=== PATIENT | male | born 1995 | race Caucasian/White ===

== ENCOUNTER 2016-11-04 23:37 | Emergency (ER) | payer OTHER ==
[~2016-11-04] VITALS: Ht 172.7 cm; Wt 56.7 kg
[~2016-11-04 23:37] MED LIST: BACTRIM DS TAB1 EACH PO; DELTASONE20 MG PO; KEFLEX500 M1 PO; MOTRIN 600 MG600 MG PO; NAPROXEN500 M2 PO; SOMA 350MG TAB350 MG PO; TRAMADOL50 MG PO; ZITHROMAX Z-PA250 M1 PO
--- NOTE | 2016-11-05 00:12 | ED HAND/WRIST INJURY COMPLAINT ---
History of Present Illness General Chief Complaint: Hand or Wrist Injury Stated Complaint: ? FX RT PINKY FINGER Source: patient, old records Exam Limitations: no limitations Vital Signs & Intake/Output Vital Signs & Intake/Output Vital Signs Date Time Temp Pulse Resp B/P B/P Pulse O2 O2 Flow FiO2 Mean Ox Delivery Rate 11/05 0050 Room Air 11/05 0037 97.2 60 18 123/67 97 Room Air Allergies Coded Allergies: NO KNOWN ALLERGIES (06/24/16) Reconcile Medications No Known Home Medications Triage Nurses Notes Reviewed? yes HPI: Patient was moving a dresser for his mother and his pinky got hot between the dresser and the wall. Patient has been having 6 out of 10 throbbing aching pain to his pinky since then. The pain radiates into his hand. The pain increased with movement. There is no numbness or tingling. Past History Medical History Any Pertinent Medical History? 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 No Review of Systems Review of Systems Constitutional: Reports: no symptoms. Respiratory: Reports: no symptoms. Cardiovascular: Reports: no symptoms. Musculoskeletal: Reports: see HPI. Neurological/Psychological: Reports: no symptoms. Immunologic/Allergic: Reports: no symptoms. Physical Exam Physical Exam General Appearance: well developed/nourished, alert, awake Eyes: Bilateral: PERRL, EOMI. Cardiovascular/Respiratory: normal breath sounds, normal peripheral pulses, regular rate/rhythm, no respiratory distress Hand Left: normal inspection, normal range of motion Hand Right: swelling, 5th finger Neurologic/Tendon: normal sensation, normal motor functions, normal tendon functions Progress Differential Diagnosis: contusion, dislocation, fracture, sprain Plan of Care: Orders Procedure Date/time Status XRY-FINGERS, RIGHT 11/040 Active Diagnostic Imaging: Viewed by Me: Radiology Read. Discussed w/RAD: Radiology Read. Radiology Impression: PATIENT: DI FELIPE PRESENT AGE: 20 PATIENT ACCOUNT NO: [id number] : 93 LOCATION: [facility] ORDERING PHYSICIAN: PEPITO MARK MD SERVICE DATE: 11/04/16 EXAM TYPE: RAD - XRY-FINGERS, RIGHT EXAMINATION: XR FINGER, RIGHT CLINICAL INFORMATION: Pain COMPARISON: None TECHNIQUE: Three views of the right hand fifth digit. FINDINGS: No fracture or dislocation. Alignment is anatomic. Joint spaces are maintained. The soft tissues are unremarkable. IMPRESSION: No fracture or malalignment. DICTATED BY: CHIQUITA JORDAN MD DATE/TIME DICTATED: 11/05/1620 QUALITY CONTROL MICROBIOLOGIST:SAUL DATE/TIME TRANSCRIBED:11/05/1620 CONFIDENTIAL, DO NOT COPY WITHOUT APPROPRIATE AUTHORIZATION. <Electronically signed in Other Vendor System> SIGNED BY: CHIQUITA JORDAN MD 11/05/1624 Departure Departure Disposition: HOME OR SELF CARE Condition: Stable Clinical Impression Primary Impression: Contusion of right little finger Referrals: HERMES ALDRIDGE,IMMANUEL Martinez (PCP/Family) KIRA SOSA MD Additional Instructions: KEEP SPLINT ON FOR THE NEXT 3 DAYS FOR COMFORT RETURN FOR ANY CONCERNS Departure Forms: Customer Survey General Discharge Information Prescriptions: Current Visit Scripts No Known Home Medications Procedures Splinting Location: FINGER Manual Alignment Performed: No Pre-Made Type: metal Splint: FINGER Splint Applied By: splint applied by other Pre-Proc Neuro Vasc Exam: normal Post-Proc Neuro Vasc Exam: normal
--- NOTE | 2016-11-05 00:25 | RADIOLOGY REPORT ---
EXAMINATION: XR FINGER, RIGHT CLINICAL INFORMATION: Pain COMPARISON: None TECHNIQUE: Three views of the right hand fifth digit. FINDINGS: No fracture or dislocation. Alignment is anatomic. Joint spaces are maintained. The soft tissues are unremarkable. IMPRESSION: No fracture or malalignment.
[2016-11-05 00:37] VITALS: BP 123/67
== END 2016-11-05 00:51 ==
LOC: ERH 23:37
DX: S60.051A Contusion of right little finger without damage to nail, initial encounter (principal); W23.0XXA Caught, crushed, jammed, or pinched between moving objects, initial encounter; Y93.9 Activity, unspecified; Y92.9 Unspecified place or not applicable
CPT/HCPCS: 73140-RT